=== PATIENT | male | born 1935 | race Caucasian/White ===

== ENCOUNTER 2021-01-08 16:33 | Inpatient (IN) | payer MEDICARE ==
[~2021-01-08] VITALS: Ht 172.7 cm; Wt 91.6 kg
[2021-01-08 17:40] LABS: BASOPHILS % 0.4 % (0.0-1.0); EOSINOPHILS # (AUTO) 0.1 (0.0-0.4); EOSINOPHILS % 0.7 % (0.0-6.0); HEMATOCRIT 40.5 % (38.2-49.6); HEMOGLOBIN 13.8 g/dL (14.0-18.0); LYMPHOCYTES # (AUTO) 2.2 (1.0-3.2); LYMPHOCYTES % 19.9 % (18.0-39.1); MEAN CORPUSCULAR HEMOGLOBIN 28.8 pg (28-32); MEAN CORPUSCULAR HGB CONC 34.1 g/dL (31-35); MEAN CORPUSCULAR VOLUME 84.4 fL (81-99); MONOCYTES # (AUTO) 0.9 (0.2-0.8); MONOCYTES % 7.7 % (4.4-11.3); NEUTROPHILS # (AUTO) 7.9 (2.1-6.9); NEUTROPHILS % 70.8 % (38.7-80.0); PLATELET COUNT 334 x10e3/uL (140-360); RED CELL DISTRIBUTION WIDTH 13.3 % (11.7-14.4)
[2021-01-08 17:58] LABS: ALBUMIN 3.4 g/dL (3.5-5.0); ANION GAP 18.3 mmol/L (8-16); CALCIUM 8.9 mg/dL (8.4-10.2); CREATININE, SERUM 1.99 mg/dL (0.72-1.25); POTASSIUM 3.3 mmol/L (3.5-5.1)
[2021-01-08 18:07] LABS: CREATINE KINASE MB 1.3 ng/mL (0-5.0)
[2021-01-08] MEDS ORDERED: INSULIN REGULAR, HUMAN 100 UNIT/1 ML 3ML VIAL IV ONE (18:15)
[2021-01-08] MEDS: SODIUM CHLORIDE 0.9% 1000ML 1,000 ML IV SCH (18:46)
[2021-01-08 19:35] LABS: ANION GAP 16.6 mmol/L (8-16); CREATININE, SERUM 1.44 mg/dL (0.72-1.25)
[2021-01-08 19:37] LABS: POTASSIUM 2.6 mmol/L (3.5-5.1)
[2021-01-08] MEDS ORDERED: POTASSIUM CHLORIDE 20 MEQ TAB CR PO STA (19:45)
[2021-01-08] MEDS ORDERED: POTASSIUM CHLORIDE 10MEQ/100ML 100 ML IV ONE (19:45)
[2021-01-08] MEDS: POTASSIUM CHLORIDE 20 MEQ TAB CR PO SCH ×3 (21:03→23:00)
[2021-01-08 23:02] VITALS: BP 135/67
[2021-01-08 23:27] VITALS: BP 135/67
[2021-01-09] VITALS (8 sets, daily range): BP systolic 117–152; BP diastolic 56–89
[2021-01-09] MEDS ORDERED: DEXTROSE 50% SYRINGE 50 ML IV PRN (00:30)
[2021-01-09] MEDS: INSULIN REGULAR, HUMAN 100 UNIT/1 ML 3ML VIAL SQ SCH ×5 (00:48→21:00)
[2021-01-09] MEDS: SODIUM CHLORIDE 0.9% 1000ML 1,000 ML IV SCH ×3 (02:45→18:45)
[2021-01-09 05:13] LABS: BASOPHILS # (AUTO) 0.1 (0.0-0.1); BASOPHILS % 0.7 % (0.0-1.0); EOSINOPHILS # (AUTO) 0.3 (0.0-0.4); EOSINOPHILS % 2.1 % (0.0-6.0); HEMATOCRIT 42.4 % (38.2-49.6); HEMOGLOBIN 14.7 g/dL (14.0-18.0); LYMPHOCYTES # (AUTO) 3.7 (1.0-3.2); LYMPHOCYTES % 30.3 % (18.0-39.1); MEAN CORPUSCULAR HEMOGLOBIN 30.6 pg (28-32); MEAN CORPUSCULAR HGB CONC 34.7 g/dL (31-35); MEAN CORPUSCULAR VOLUME 88.3 fL (81-99); MONOCYTES % 8.6 % (4.4-11.3); NEUTROPHILS % 57.9 % (38.7-80.0); PLATELET COUNT 279 x10e3/uL (140-360); RED CELL DISTRIBUTION WIDTH 14.6 % (11.7-14.4)
[2021-01-09 05:35] LABS: ALBUMIN 3.2 g/dL (3.5-5.0); ALBUMIN/GLOBULIN RATIO 0.9 (0.8-2.0); ANION GAP 15.7 mmol/L (8-16); CREATININE, SERUM 1.15 mg/dL (0.72-1.25); POTASSIUM 4.7 mmol/L (3.5-5.1)
[2021-01-09 06:02] LABS: CREATINE KINASE 100 IU/L (30-200)
[2021-01-09] MEDS ORDERED: ACETAMINOPHEN 325 MG TAB PO PRN (06:15)
[2021-01-09] MEDS ORDERED: ONDANSETRON HCL INJ 2MG/ML 2ML 2 MG/ML VIAL IV PRN (06:15)
[2021-01-09] MEDS ORDERED: DOCUSATE SODIUM 100 MG CAP PO PRN (06:15)
[2021-01-09] MEDS ORDERED: ZOLPIDEM TARTRATE 5 MG TAB PO PRN (06:15)
[2021-01-09 08:08] LABS: CHOL/HDL RATIO 6.1 (3.9-4.7)
[2021-01-09] MEDS: FAMOTIDINE 20 MG TAB PO SCH ×2 (08:34→17:20)
[2021-01-09] MEDS ORDERED: INSULIN GLARGINE 100 UNITS/ML VIAL SQ SCH ×2 (09:00→21:00)
[2021-01-09 14:06] LABS: CREATINE KINASE MB 1.5 ng/mL (0-5.0)
[2021-01-10] VITALS (9 sets, daily range): BP systolic 98–155; BP diastolic 55–78
[2021-01-10] MEDS: SODIUM CHLORIDE 0.9% 1000ML 1,000 ML IV SCH ×3 (02:45→18:45)
[2021-01-10 06:59] LABS: BASOPHILS # (AUTO) 0.1 (0.0-0.1); BASOPHILS % 0.6 % (0.0-1.0); EOSINOPHILS # (AUTO) 0.3 (0.0-0.4); EOSINOPHILS % 2.9 % (0.0-6.0); HEMOGLOBIN 13.2 g/dL (14.0-18.0); LYMPHOCYTES # (AUTO) 3.1 (1.0-3.2); LYMPHOCYTES % 27.2 % (18.0-39.1); MEAN CORPUSCULAR HEMOGLOBIN 29.3 pg (28-32); MEAN CORPUSCULAR HGB CONC 33.8 g/dL (31-35); MEAN CORPUSCULAR VOLUME 86.7 fL (81-99); MONOCYTES # (AUTO) 0.9 (0.2-0.8); MONOCYTES % 7.6 % (4.4-11.3); PLATELET COUNT 292 x10e3/uL (140-360)
[2021-01-10 07:25] LABS: BLOOD UREA NITROGEN 16 mg/dL (7-26); BUN/CREATININE RATIO 16 (6-25); CALCIUM 8.2 mg/dL (8.4-10.2); CARBON DIOXIDE 26 mmol/L (22-29); CHLORIDE 106 mmol/L (98-107); CREATININE, SERUM 1.02 mg/dL (0.72-1.25); EST GLOMERULAR FILTRATION RATE > 60 ML/MIN (60-); GLUCOSE 252 mg/dL (74-118); SODIUM 139 mmol/L (136-145)
[2021-01-10] MEDS: FAMOTIDINE 20 MG TAB PO SCH ×2 (08:12→16:33)
[2021-01-10] MEDS: INSULIN REGULAR, HUMAN 100 UNIT/1 ML 3ML VIAL SQ SCH ×4 (08:13→21:00)
[2021-01-10] MEDS ORDERED: INSULIN GLARGINE 100 UNITS/ML VIAL SQ SCH (09:00)
[2021-01-10] MEDS ORDERED: GLIPIZIDE5 MG PO ×2 (12:10)
[2021-01-10] MEDS ORDERED: POTASSIUM CHLO10 ME1 PO ×2 (12:10)
[2021-01-10] MEDS ORDERED: FUROSEMIDE40 MG PO (12:10)
[2021-01-10] MEDS ORDERED: FINASTERIDE5 MG PO (12:10)
[2021-01-10] MEDS ORDERED: FLOMAX0.4 MG PO (12:10)
[2021-01-10] MEDS ORDERED: LOPID600 MG PO (12:10)
[2021-01-10] MEDS ORDERED: METOLAZONE5 MG PO (12:10)
[2021-01-10] MEDS ORDERED: VESICARE5 MG PO (12:10)
[2021-01-10] MEDS ORDERED: LISINOPRIL2.5 MG PO (12:10)
[2021-01-10] MEDS ORDERED: BASAGLAR K100 UNIT/1 SC (12:10)
[2021-01-10] MEDS ORDERED: METFORMIN HCL500 M2 PO (12:10)
[2021-01-10] MEDS ORDERED: NEXIUM40 MG PO (12:10)
[2021-01-10] MEDS: INSULIN GLARGINE 100 UNITS/ML VIAL SQ SCH (21:00)
[2021-01-11] VITALS: BP 171/86
[2021-01-11 04:00] VITALS: BP 169/97
[2021-01-11] MEDS: SODIUM CHLORIDE 0.9% 1000ML 1,000 ML IV SCH ×2 (05:10→10:45)
[2021-01-11 07:30] VITALS: BP 122/68
[2021-01-11] MEDS: INSULIN GLARGINE 100 UNITS/ML VIAL SQ SCH (08:30)
[2021-01-11] MEDS: INSULIN REGULAR, HUMAN 100 UNIT/1 ML 3ML VIAL SQ SCH ×2 (08:30→11:30)
[2021-01-11] MEDS: FAMOTIDINE 20 MG TAB PO SCH (08:38)
[2021-01-11 09:00] VITALS: BP 122/68
[2021-01-11 11:37] VITALS: BP 129/76
[2021-01-11] MEDS ORDERED: HUMULIN R100 UNIT/2 SQ (13:41)
[2021-01-11] MEDS ORDERED: Insulin Glargine SQ (13:41)
== END 2021-01-11 14:50 | disposition home or self-care (01) | DRG 639 ==
LOC: ER 17:06 → ERHOLD 18:36 → IMCU 21:52 → OBSVTOIN 01-09 14:49 → MED/SURG 01-11 08:00
PROVIDERS: ADMIT Internal Medicine; ATTEND Internal Medicine
DX: E11.65 Type 2 diabetes mellitus with hyperglycemia (principal); E66.9 Obesity, unspecified; Z68.30 Body mass index [BMI] 30.0-30.9, adult; E86.0 Dehydration; Z20.822 Contact with and (suspected) exposure to COVID-19
CPT/HCPCS: 36415; 70450; 80048; 80053; 80061; 82550; 82553; 82948; 83036; 84484; 85025; 96361; 99251; 99284; G0378; J1815; J1817; J3480; J7030; U0002